=== PATIENT | male | born 1955 | race African-American/Black ===

== ENCOUNTER 2022-05-22 08:16 | Inpatient (IN) | payer MEDICARE, MEDICAID, SELFPAY ==
[2022-05-22] VITALS (30 sets, daily range): BP systolic 110–164; BP diastolic 62–95; PULSE 59–94; RESP 14–33; TEMP 36.5–38.9; O2SAT 90–100; BMI 26.0
--- NOTE | ~2022-05-22 | XR_ITS ---
EXAMINATION: XR chest 1V portable INDICATION: Cough, sepsis TECHNIQUE: Portable AP chest at 0845 hours COMPARISON: None available FINDINGS: There are minimal airspace opacities of the left lung base. No pleural effusion or pneumoth orax. The cardiomediastinal silhouette is normal. 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 IMPRESSION: 1. Minimal left basilar airspace opacity, consistent with atelectasis versus pneumonia. Reviewed, dictated and finalized at location A. IMPRESSION: 1. Minimal left basilar airspace opacity, consistent with atelectasis versus pn eumonia.
--- NOTE | ~2022-05-22 | XR_ITS ---
EXAMINATION: XR chest 2V DATE: 05/27/2022 09:01 INDICATION: Pneumonia. TECHNIQUE: Frontal and lateral views of the chest were obtained. COMPARISON: Chest CT 05/22/2022 FINDINGS: Calcified pulmonary nodules are consistent with old granulomatous disease. There are airspa ce opacities in left upper lobe. There is mild atelectasis in right midlung zone. There are small ple ural effusions. No pneumothorax. The heart size is normal. IMPRESSION: 1. Stable airspace opacities in left upper lobe, consistent with pneumonia. 2. Small pleural effusions. Reviewed, dictated and finalized at location A.
--- NOTE | ~2022-05-22 | CT_ITS ---
EXAMINATION: CTA chest PE protocol DATE: 05/22/2022 10:37 CDT INDICATION: Increased weakness. Elevated d-dimer. Back pain. TECHNIQUE: Computed tomographic angiography (CTA) of the chest was performed with 100 mL Omnipaque-35 0 intravenous contrast. The dose-length product was 381.82 mGy-cm. Maximum intensity projection 3D-re constructions of the aorta and other arteries were constructed by the technologist on a separate work station. COMPARISON: None. FINDINGS: There is thoracic lymphadenopathy involving the AP window, right paratracheal and right hil ar locations. Small pleural effusions. Cardiomegaly. Study limited for evaluation of peripheral pulmo nary arteries due to motion and contrast bolus timing. No central pulmonary embolism. No evidence for aortic aneurysm or dissection. Patchy airspace disease present in the upper and lower lobes, most co nfluent in the left upper lobe, consistent with pneumonia. Mild thoracic spondylosis. No acute osseou s abnormality. IMPRESSION: 1. No large central pulmonary embolism. Evaluation of peripheral pulmonary arteries limited by motion and contrast bolus timing. 2: Multifocal pneumonia most confluent in the left upper lobe. 3: Small pleural effusions. 4: Mediastinal and right hilar lymphadenopathy, most likely reactive. Reviewed, dictated and finalized at location B. IMPRESSION: 1. No large central pulmonary embolism. Evaluation of peripheral pulmonary betina antonio limited by motion and contrast bolus timing. 2: Multifocal pneumonia most confluent in the left upper lobe. 3: Small pleural effusions. 4: Mediastinal and right hilar lymphadenopathy, most likely reactive.
--- NOTE | ~2022-05-22 | CT_ITS ---
EXAMINATION: CT thoracic lumbar wo con DATE: 05/22/2022 10:33 INDICATION: Increased weakness. Back pain. Elevated d-dimer. TECHNIQUE: Computed tomography (CT) of the thoracic and lumbar spine was performed without intravenou s contrast. The dose-length product was 1309.68 mGy-cm. Automated exposure control and iterative cindy nstruction technique were employed. COMPARISON: None FINDINGS: There is mild superior endplate compression fracture of L1, likely chronic. There is a bone island an d T8. There is dextrocurvature of the lower thoracic spine. No significant paraspinal soft tissue abn ormality. Small pleural effusions. Patchy bilateral airspace disease, consistent with pneumonia. Ther e are degenerative changes of the sacroiliac joints bilaterally. There is degenerative retrolisthesis at L1-2. There is disc narrowing at L3-4, L4-5 and L5-S1. There is mild multilevel facet hypertrophy. There is bilateral neural foraminal narrowing at L1-2. IMPRESSION: 1. Mild superior endplate compression deformity of L1, likely chronic. Consider correlation with MRI to assess for bone marrow edema. 2: Moderate degenerative spondylosis at L1-2 with retrolisthesis causing bilateral neural foraminal n arrowing. 3: Moderate lumbar spondylosis. Reviewed, dictated and finalized at location B. IMPRESSION: 1. Mild superior endplate compression deformity of L1, likely chronic. Consider correlation with MRI to assess for bone marrow edema. 2: Moderate degenerative spondylosis at L1-2 with retrolisthesis causing bilate ral neural foraminal narrowing. 3: Moderate lumbar spondylosis.
--- NOTE | 2022-05-22 08:17 | ED.WEAKNESS ---
HPI - Weakness General Chief complaint: Dizziness Stated complaint: dizzy History of Present Illness HPI Narrative: Patient is a 67-year-old male with a history of hypertension, gout, hypothyroidism presenting to the emergency department for evaluation of weakness, intermittent dizziness and difficulty with ambulation. Per EMS report, the patient reportedly tested positive for COVID on May 13. Patient was initially evaluated at [facility] where he was admitted and then ultimately discharged home too quickly per family. The patient has a family member who is a caregiver that checked on the patient today and found him to be weak and then called EMS. At the time of arrival, patient is alert and oriented to person, place, time but does struggle with identifying the year. He is reporting upper and lower back pain and generalized weakness. He reports decreased appetite, productive cough and shortness of breath. He denies any frontal chest pain. Per EMS, he required significant assist with ascending staircase since his room is in the basement and is likely not safe at home due to significant amount of steps. When questioned, patient denies any close family members that he would want contacted and denies any children. Related Data Home Medications Medication Instructions Recorded Confirmed allopurinol 100 mg tablet 100 mg PO DAILY 05/22/22 calcium carbonate 500 mg-vitamin 1 tablet PO BID 05/22/22 D3 5 mcg (200 unit) tablet (Oysco 500/D) hydrocortisone 5 mg tablet 5 mg PO BID 05/22/22 levothyroxine 75 mcg tablet 75 mcg PO DAILY 05/22/22 losartan 50 mg tablet 50 mg PO DAILY 05/22/22 metoprolol succinate 50 mg 50 mg PO DAILY 05/22/22 tablet,extended release 24 hr Allergies Allergy/AdvReac Type Severity Reaction Status Date / Time No Known Allergies Allergy Verified 05/22/22 08:22 Review of Systems Review of Systems: CONSTITUTIONAL: Denies fever, reports chills EYES: Denies visual changes, redness, or discharge. ENT: Denies rhinorrhea, reports congestion CARDIOVASCULAR: Denies chest pain, palpitations, or edema. RESPIRATORY: Reports cough and shortness of breath GASTROINTESTINAL: Denies abdominal pain, nausea, vomiting, or diarrhea. GENITOURINARY: Denies dysuria or hematuria. SKIN: Denies rash or itching. MUSCULOSKELETAL: Reports upper and lower back pain as well as diffuse joint pain and myalgias. NEUROLOGIC: Denies headache, numbness, reports weakness. Reports intermittent dizziness, denies currently. Denies room spinning sensation. [facility] Social History Social History Alcohol intake: never Substance use: never Living arrangements: alone Gender identity (if verbalized by the patient): Male Exam Narrative: GENERAL: Awake, alert, conversant, fatigued appearing HEAD: Normocephalic, atraumatic. EYES: PERRLA and EOMI. ENT: Nares clear, no rhinorrhea or epistaxis. Mucous membranes dry. NECK: Supple. CHEST: No respiratory distress, coarse breath sounds bilaterally, greater on the right than on the left, no significant crackles HEART: Tachycardic rate, sinus rhythm ABDOMEN:Non distended, non tender EXTREMITIES: Normal range of motion. No edema. No calf edema, erythema, induration or pain bilaterally. SKIN: Warm, dry, no rash. NEURO:No focal deficits. Alert and oriented x 2-3 Course Vital Signs Vital signs: Vital Signs Temperature 38.9 C H 05/22/22 08:14 Pulse Rate 94 05/22/22 08:14 Respiratory Rate 20 05/22/22 08:14 Blood Pressure 164/82 H 05/22/22 08:14 Pulse Oximetry 99 05/22/22 08:14 Oxygen Delivery Room Air 05/22/22 08:14 Temperature 37.2 C 05/22/22 11:35 Pulse Rate 65 05/22/22 11:48 Respiratory Rate 25 H 05/22/22 11:48 Blood Pressure 110/67 05/22/22 11:48 Pulse Oximetry 97 05/22/22 11:48 Oxygen Delivery Room Air 05/22/22 08:14 MDM - Weakness MDM Narrative Medical decision fallon
--- NOTE | 2022-05-22 08:18 | ECG_ITS ---
Measurements Intervals [place] Rate: 91 P: 54 IA: 143 QRS: -20 QRSD: 101 T: 64 QT: 350 QTc: 432 Interpretive Statements SINUS RHYTHM Cannot rule out inferior infarction, AGE INDETERMINATE NONSPECIFIC ST AND T-WAVE ABNORMALITY ABNORMAL ECG NO PREVIOUS ECG AVAILABLE FOR COMPARISON Electronically Signed On 05-22-2022 12:05:28 CDT by Trey Vergara M.D.
[2022-05-22] MEDS: ACETAMINOPHEN 500 MG TABLET 1000 MG PO (08:33)
[2022-05-22] MEDS: DEXTROSE 5%/0.45% SOD CHL 500 ML 100 ML IV CONT (08:35)
[2022-05-22 08:37] LABS: Glucose Point of Care 69 mg/dl (65-105)
[2022-05-22 08:42] LABS: Basophils Percent Auto 0.2 % (0.2-1.2); Eosinophils Absolute Auto 0.2 K/mm3 (0-0.3); Eosinophils Percent Auto 1.2 % (0-4.4); Hematocrit 38.9 % (42.0-52.0); Hemoglobin 12.5 g/dL (14.0-18.0); Immature Granulocyte Absolute 0.78 K/mm3 (0.00-0.031); Immature Granulocyte Percent A 4.4 % (0-0.5); Lymphocytes Absolute Auto 3.31 K/mm3 (0.9-3.2); Lymphocytes Percent Auto 18.7 % (18.3-44.2); Mean Corpuscular HGB Conc 32.1 g/dl (32-36); Mean Corpuscular Hemoglobin 26.2 pg (26-34); Mean Corpuscular Volume 81.4 fl (80-100); Mean Platelet Volume 9.3 fl (7.4-10.4); Monocytes Absolute Auto 1.2 K/mm3 (0.1-0.6); Monocytes Percent Auto 6.7 % (2.6-8.5); Neutrophils Absolute Auto 12.2 K/mm3 (1.3-6.7); Neutrophils Percent Auto 68.8 % (45.5-73.1); Platelet Count Result 445 k/mm3 (150-375); Red Blood Count 4.78 M/mm3 (4.6-6.20); Red Cell Distribution Width 14.1 % (11.5-14.5); White Blood Count 17.7 K/mm3 (4.5-10.0)
[2022-05-22 08:53] LABS: Lactic Acid Reflex 2.2 mmol/L (0.7-2.0)
[2022-05-22 09:16] LABS: Appearance Urine Cloudy (Clear); Bilirubin Urine Negative (Negative); Blood Urine 1+ (Negative); Color Urine Yellow (Yellow); Glucose Urine UA Negative (Negative); Ketones Urine Negative (Negative); Leukocyte Esterase Ur 1+ LEU/UL (Negative); Nitrate Urine Negative (Negative); Protein Urine Trace mg/dL (Negative); pH Urine 6.5 (5.0-9.0)
[2022-05-22 09:22] LABS: Glucose Point of Care 50 mg/dl (65-105)
[2022-05-22 09:24] LABS: INR 1.1; Prothrombin Time 14.2 Seconds (11.1-14.7)
[2022-05-22 09:25] LABS: Partial Thromboplastin Time 40.8 SECONDS (22.3-36.8)
[2022-05-22 09:26] LABS: D Dimer 3.39 ug/mL (<0.48)
--- NOTE | 2022-05-22 09:26 | PC.NURSE ---
Addendum entered by Brian Bellamy RN 05/22/22 09:29: Rate changed to 500mL/hr. Original Note: Patient's blood glucose rechecked, currently 50. EDP Grzegorz notified. Patient given juice and per EDP Grzegorz verbal order read-back increase D5 to 999ml/hr.
[2022-05-22 09:33] LABS: NT Pro B Type Natriuretic Pept 431 pg/mL (5-100)
[2022-05-22 09:41] LABS: Glucose Point of Care 86 mg/dl (65-105)
[2022-05-22 09:41] LABS: Alanine Aminotransferase 38 U/L (6-50); Albumin Level 3.6 g/dL (3.5-5.1); Alkaline Phosphatase 109 U/L (38-126); Anion Gap 8 mmol/L (8-16); Aspartate Amino Transferase 47 U/L (17-59); Bilirubin,Total 1.3 mg/dL (0.2-1.3); Blood Urea Nitrogen 13 mg/dL (9-20); Calcium 8.8 mg/dL (8.4-10.2); Carbon Dioxide 25 mmol/L (22-30); Chloride 99 mmol/L (98-107); Estimated CRCL calculation 43 ml/min; Estimated Glomerular Filt Rate 52; Glucose 91 mg/dL (65-110); Potassium 3.5 mmol/L (3.4-5.0); Sodium 132 mmol/L (137-145)
[2022-05-22 09:43] LABS: Bacteria Urine Trace /hpf; Mucus Urine Rare /lpf; RBC Urine 0-2 /hpf (0-2); Squamous Epithelial Cell Urine Rare /hpf (Few); WBC Urine 21-30 /hpf
[2022-05-22 09:44] LABS: Add Urine Microscopic? YES
[2022-05-22 09:52] LABS: CRP 19.1 mg/dL (<1.0); Troponin I 0.036 ng/mL (0.000-0.034)
[2022-05-22] MEDS: SODIUM CHLORIDE 0.9% IV 500 ML 999 ML IV CONT (09:58)
[2022-05-22 10:23] LABS: Glucose Point of Care 103 mg/dl (65-105)
[2022-05-22 10:35] LABS: Thyroid Stimulating Hormone Reflex 0.099 uIU/mL (0.465-4.68)
[2022-05-22] MEDS: SODIUM CHLORIDE 0.9% IV 1,000 ML 999 ML IV CONT (10:49)
[2022-05-22 11:06] LABS: Free T4 Free Thyroxine Reflex 0.98 ng/dL (0.78-2.19)
--- NOTE | 2022-05-22 11:10 | PM.IMHP ---
H&P: HPI History of Present Illness Date/Time: 05/22/22 11:10 Chief Complaint: Patient is a 67-year-old male with a history of hypertension, gout, hypothyroidism presenting to the emergency department for evaluation of weakness, intermittent dizziness and difficulty with ambulation.? Per EMS report, the patient reportedly tested positive for COVID on May 13.? Patient was initially evaluated at [facility] where he was admitted and then ultimately discharged home too quickly per family.? The patient has a family member who is a caregiver that checked on the patient today and found him to be weak and then called EMS.? This is why EMS was called and the patient was brought into the ER. At the time of arrival, patient is alert and oriented to person, place, time but does struggle with identifying the year.? He is reporting upper and lower back pain and generalized weakness.? He reports decreased appetite, productive cough and shortness of breath.? He denies any frontal chest pain.? Per EMS, he required significant assist with ascending staircase since his room is in the basement and is likely not safe at home due to significant amount of steps.? When I evaluated the patient he was doing a little bit better. Feeling like his breathing was improved. He did receive vanc and cefepime in the ER. CT scan revealed pneumonia but no PE. Denies any other chest pain complaints. Review of Systems Review of Systems: 10 point ROS negative except as stated in HPI / Subjective PMFSH Social History Social History Alcohol intake: never Substance use: never Living arrangements: alone Gender identity (if verbalized by the patient): Male Meds Home Medications and Allergies Home Medications Medication Instructions Recorded Confirmed Type allopurinol 100 mg tablet 100 mg PO DAILY 05/22/22 History calcium carbonate 500 mg-vitamin 1 tablet PO BID 05/22/22 History D3 5 mcg (200 unit) tablet (Oysco 500/D) hydrocortisone 5 mg tablet 5 mg PO BID 05/22/22 History levothyroxine 75 mcg tablet 75 mcg PO DAILY 05/22/22 History losartan 50 mg tablet 50 mg PO DAILY 05/22/22 History metoprolol succinate 50 mg 50 mg PO DAILY 05/22/22 History tablet,extended release 24 hr Allergies Allergy/AdvReac Type Severity Reaction Status Date / Time No Known Allergies Allergy Verified 05/22/22 08:22 Vital Signs Vital Signs - 24 hr 05/22/22 08:14 05/22/22 08:22 05/22/22 08:30 Temperature 102.1 F H Pulse Rate 94 91 87 Respiratory Rate 20 28 H 30 H Blood Pressure 164/82 H Pulse Oximetry 99 100 Oxygen Delivery Room Air 05/22/22 08:45 05/22/22 09:00 05/22/22 09:16 Temperature Pulse Rate 84 81 83 Respiratory Rate 27 H 33 H 23 H Blood Pressure Pulse Oximetry 99 100 100 Oxygen Delivery 05/22/22 09:19 05/22/22 09:33 05/22/22 10:49 Temperature 98.9 F Pulse Rate 80 78 Respiratory Rate 30 H 32 H Blood Pressure 155/81 H 120/76 Pulse Oximetry 98 98 Oxygen Delivery 05/22/22 09:34 05/22/22 09:45 05/22/22 10:00 Temperature Pulse Rate 78 78 79 Respiratory Rate 33 H 32 H 32 H Blood Pressure Pulse Oximetry 98 98 99 Oxygen Delivery 05/22/22 10:01 05/22/22 10:15 05/22/22 10:35 Temperature Pulse Rate 79 92 Respiratory Rate 33 H 23 H Blood Pressure 116/66 Pulse Oximetry 98 98 97 Oxygen Delivery 05/22/22 10:44 05/22/22 10:45 Temperature Pulse Rate 77 76 Respiratory Rate 31 H 27 H Blood Pressure 121/66 Pulse Oximetry 96 97 Oxygen Delivery H&P: Results Labs Labs: Short CBC 05/22/22 Range/Units 08:33 WBC 17.7 H (4.5-10.0) K/mm3 Hgb 12.5 L (14.0-18.0) g/dL Hct 38.9 L (42.0-52.0) % Plt Count 445 H (150-375) k/mm3 BMP 05/22/22 09:06 Sodium 132 L Potassium 3.5 Chloride 99 Carbon Dioxide 25 BUN 13 Creatinine 1.60 H Glucose 91 Calcium 8.8 Cardiac Enzym
[2022-05-22 11:23] LABS: Glucose Point of Care 75 mg/dl (65-105)
[2022-05-22 11:38] LABS: Reflex Lactic Acid Yes or No Add Lactic
[2022-05-22 11:46] LABS: Total Triiodothyronine (T3) 0.76 NG/ML (0.97-1.69)
--- NOTE | 2022-05-22 12:00 | ADMGEN ---
This patient, Alex Saldana, was admitted to IMU Room 209-. Patient/family oriented to hospital policies and general routines including ID bracelet, bed and alarms, visiting hours, pain management, procedures, bathroom and other care routines, personal items, smoking policy, room service/diet, and visiting hours. Information on how to activate the Rapid Response Team has been discussed. Patient/Family are encouraged to report perceived risks to care and to ask questions if they do not understand what they are told or what they should do.
[2022-05-22 12:10] LABS: Lactic Acid 0.9 mmol/L (0.7-2.0)
[2022-05-22 12:23] LABS: Troponin I 0.034 ng/mL (0.000-0.034)
[2022-05-22 12:45] LABS: Glucose Point of Care 57 mg/dl (65-105)
[2022-05-22 13:25] LABS: Glucose Point of Care 75 mg/dl (65-105)
[2022-05-22] MEDS: DEXTROSE 5%/0.45% SOD CHL 1,000 ML 100 ML IV CONT (13:29)
[2022-05-22 14:37] LABS: Glucose Point of Care 80 mg/dl (65-105)
[2022-05-22 15:16] LABS: Glucose Point of Care 76 mg/dl (65-105)
[2022-05-22 16:29] LABS: Troponin I 0.019 ng/mL (0.000-0.034)
[2022-05-22 16:50] LABS: Glucose Point of Care 59 mg/dl (65-105)
[2022-05-22 18:23] LABS: Glucose Point of Care 61 mg/dl (65-105)
[2022-05-22] MEDS: DEXTROSE 50% 25 GM/50 ML SYRINGE IV PUSH ×3 (18:40→21:29)
[2022-05-22 19:24] LABS: Glucose Point of Care 60 mg/dl (65-105)
[2022-05-22] MEDS: DEXTROSE 10% 1,000 ML 125 ML IV CONT (20:29)
[2022-05-22 20:31] LABS: Glucose Point of Care 80 mg/dl (65-105)
[2022-05-22 21:16] LABS: Glucose Point of Care 71 mg/dl (65-105)
[2022-05-22 21:33] LABS: Glucose Point of Care 69 mg/dl (65-105)
[2022-05-22 22:11] LABS: Glucose Point of Care 100 mg/dl (65-105)
[2022-05-22 23:12] LABS: Glucose Point of Care 79 mg/dl (65-105)
[2022-05-23] VITALS (14 sets, daily range): BP systolic 132–169; BP diastolic 58–84; PULSE 73–89; RESP 16–24; TEMP 36.6–37.6; O2SAT 96–100
[2022-05-23 00:36] LABS: Glucose Point of Care 82 mg/dl (65-105)
[2022-05-23] MEDS: GLUCAGON FOR INJ 1 MG VIAL IM (00:36)
[2022-05-23 02:05] LABS: Glucose Point of Care 112 mg/dl (65-105)
[2022-05-23 03:17] LABS: Glucose Point of Care 112 mg/dl (65-105)
[2022-05-23 05:01] LABS: Glucose Point of Care 99 mg/dl (65-105)
[2022-05-23] MEDS: DEXTROSE 10% 1,000 ML 125 ML IV CONT ×3 (05:13→22:56)
[2022-05-23 05:16] LABS: Glucose Point of Care 102 mg/dl (65-105)
[2022-05-23 05:27] LABS: Basophils Absolute Auto 0.1 K/mm3 (0.0-0.1); Basophils Percent Auto 0.3 % (0.2-1.2); Eosinophils Absolute Auto 0.3 K/mm3 (0-0.3); Eosinophils Percent Auto 1.5 % (0-4.4); Hematocrit 38.9 % (42.0-52.0); Hemoglobin 12.8 g/dL (14.0-18.0); Immature Granulocyte Absolute 0.65 K/mm3 (0.00-0.031); Immature Granulocyte Percent A 3.5 % (0-0.5); Lymphocytes Absolute Auto 3.04 K/mm3 (0.9-3.2); Lymphocytes Percent Auto 16.5 % (18.3-44.2); Mean Corpuscular HGB Conc 32.9 g/dl (32-36); Mean Corpuscular Hemoglobin 26.3 pg (26-34); Mean Platelet Volume 8.9 fl (7.4-10.4); Monocytes Absolute Auto 1.1 K/mm3 (0.1-0.6); Monocytes Percent Auto 6.2 % (2.6-8.5); Neutrophils Absolute Auto 13.3 K/mm3 (1.3-6.7); Platelet Count Result 440 k/mm3 (150-375); Red Blood Count 4.86 M/mm3 (4.6-6.20); Red Cell Distribution Width 13.8 % (11.5-14.5); White Blood Count 18.5 K/mm3 (4.5-10.0)
[2022-05-23 05:42] LABS: Anion Gap 7 mmol/L (8-16); Blood Urea Nitrogen 8 mg/dL (9-20); Calcium 7.8 mg/dL (8.4-10.2); Carbon Dioxide 25 mmol/L (22-30); Chloride 98 mmol/L (98-107); Estimated CRCL calculation 52 ml/min; Estimated Glomerular Filt Rate > 60; Glucose 104 mg/dL (65-110); Potassium 3.5 mmol/L (3.4-5.0); Sodium 130 mmol/L (137-145)
[2022-05-23 06:30] LABS: Glucose Point of Care 114 mg/dl (65-105)
[2022-05-23 08:26] LABS: Glucose Point of Care 101 mg/dl (65-105)
[2022-05-23 09:09] LABS: Glucose Point of Care 139 mg/dl (65-105)
--- NOTE | 2022-05-23 11:36 | PCNSR ---
On 05/23/22, the student, Teresa Moreno, provided care and completed [facility] documentation on this patient. I have reviewed the student's documentation and agree with the findings.
[2022-05-23 12:22] LABS: Glucose Point of Care 109 mg/dl (65-105)
[2022-05-23 16:44] LABS: Glucose Point of Care 103 mg/dl (65-105)
--- NOTE | 2022-05-23 17:10 | PM.IMPN ---
Progress Note: A&P Assessment and Plan (1) Hypothyroidism: Code(s): E03.9 - Hypothyroidism, unspecified Status: Acute Assessment and Plan: Will continue home medications once reconciled. (2) Gout: Code(s): M10.9 - Gout, unspecified Status: Acute Assessment and Plan: Will continue home medications once reconciled. (3) Hypertension: Code(s): I10 - Essential (primary) hypertension Status: Acute Assessment and Plan: Monitor blood pressure, continue home medications. (4) Pneumonia: Code(s): J18.9 - Pneumonia, unspecified organism Status: Acute Assessment and Plan: CT scan showed no PE but she does have areas of consolidation consistent with pneumonia. Recent just discharged from the hospital with COVID. IV vanc and cefepime started in the ER will be continued. Respiratory support as needed (5) COVID: Code(s): U07.1 - COVID-19 Status: Acute Assessment and Plan: Recent infected, just discharged from the hospital recently. Respiratory support as needed (6) Weakness: Code(s): R53.1 - Weakness Status: Acute Assessment and Plan: PT/OT Additional Plan 05/23/2022 interval history: patient with dementia and recently was diagnosed with COVID 19 and hospitalized, presented with weakness and now has pneumonia treated with Cefepime and Vancomycin, will have PT.OT evaluate the patient and will repeat chest x-ray and monitor, Subjective Date/time seen: 05/23/22 17:10 HPI-Patient is a 67-year-old male with a history of hypertension, gout, hypothyroidism presenting to the emergency department for evaluation of weakness, intermittent dizziness and difficulty with ambulation.? Per EMS report, the patient reportedly tested positive for COVID on May 13.? Patient was initially evaluated at [facility] where he was admitted and then ultimately discharged home too quickly per family.? The patient has a family member who is a caregiver that checked on the patient today and found him to be weak and then called EMS.? This is why EMS was called and the patient was brought into the ER. At the time of arrival, patient is alert and oriented to person, place, time but does struggle with identifying the year.? He is reporting upper and lower back pain and generalized weakness.? He reports decreased appetite, productive cough and shortness of breath.? He denies any frontal chest pain.? Per EMS, he required significant assist with ascending staircase since his room is in the basement and is likely not safe at home due to significant amount of steps.? When I evaluated the patient he was doing a little bit better.? Feeling like his breathing was improved.? He did receive vanc and cefepime in the ER.? CT scan revealed pneumonia but no PE.? Denies any other chest pain complaints. 05/23/2022 interval history: patient with dementia and recently was diagnosed with COVID 19 and hospitalized, presented with weakness and now has pneumonia treated with Cefepime and Vancomycin, will have PT.OT evaluate the patient and will repeat chest x-ray and monitor, Review of Systems Review of Systems: 10 point ROS negative except as stated in HPI / Subjective Exam Narrative: Patient is comfortable, NAD HEENT: eyes are clear and none icteric LUNGS: normal respiratory effort ABD: not distended Lower extremities: no edema SKIN: nonjaundiced Neuro: grossly intact. Objective Data Vital Signs Vital Signs: Vital Signs - 24 hr 05/22/22 18:00 05/22/22 20:00 05/22/22 20:00 Temperature 99 F Pulse Rate 60 73 Respiratory Rate 20 Blood Pressure 149/63 H Pulse Oximetry 90 Oxygen Delivery Room Air 05/22/22 20:00 05/22/22 22:00 05/22/22 23:58 Temperature 98.7 F Pulse Rate 79 74 75 Respiratory Rate 16 Blood Pressure 153/95 H Pulse Oximetry 96 Oxygen Delivery 05/23/22 00:00 05/23/22 00:00 05/23/22 04:00 Temperature Pulse
[2022-05-23] MEDS: TAMSULOSIN HCL 0.4 MG CAPSULE PO (20:19)
[2022-05-23 22:01] LABS: Glucose Point of Care 118 mg/dl (65-105)
[2022-05-24] VITALS (14 sets, daily range): BP systolic 98–128; BP diastolic 51–69; PULSE 61–96; RESP 16–22; TEMP 36.9–37.6; O2SAT 95–100
[2022-05-24 00:03] LABS: Glucose Point of Care 125 mg/dl (65-105)
[2022-05-24 04:31] LABS: Glucose Point of Care 172 mg/dl (65-105)
[2022-05-24 05:35] LABS: Estimated CRCL calculation 45 ml/min; Estimated Glomerular Filt Rate 56
[2022-05-24] MEDS: DEXTROSE 10% 1,000 ML 125 ML IV CONT ×2 (07:04→17:26)
[2022-05-24] MEDS: LEVOTHYROXINE SODIUM 75 MCG TABLET PO (07:05)
[2022-05-24 07:51] LABS: Glucose Point of Care 125 mg/dl (65-105)
[2022-05-24] MEDS: LOSARTAN POTASSIUM 50 MG TABLET PO (09:49)
[2022-05-24] MEDS: METOPROLOL SUCCINATE EXT REL 50 MG TABCR PO (09:49)
[2022-05-24] MEDS: HYDROCORTISONE 10 MG TABLET PO (09:49)
[2022-05-24 10:01] LABS: Hematocrit 37.2 % (42.0-52.0); Hemoglobin 12.2 g/dL (14.0-18.0); Mean Corpuscular HGB Conc 32.8 g/dl (32-36); Mean Corpuscular Hemoglobin 26.8 pg (26-34); Mean Corpuscular Volume 81.8 fl (80-100); Mean Platelet Volume 10.7 fl (7.4-10.4); Platelet Count Result 411 k/mm3 (150-375); Red Blood Count 4.55 M/mm3 (4.6-6.20); Red Cell Distribution Width 14.6 % (11.5-14.5); White Blood Count 18.6 K/mm3 (4.5-10.0)
[2022-05-24 10:22] LABS: Alanine Aminotransferase 31 U/L (6-50); Albumin Level 2.8 g/dL (3.5-5.1); Alkaline Phosphatase 102 U/L (38-126); Anion Gap 10 mmol/L (8-16); Aspartate Amino Transferase 60 U/L (17-59); Bilirubin,Total 1.3 mg/dL (0.2-1.3); Blood Urea Nitrogen 7 mg/dL (9-20); Calcium 7.6 mg/dL (8.4-10.2); Carbon Dioxide 20 mmol/L (22-30); Chloride 92 mmol/L (98-107); Estimated CRCL calculation 45 ml/min; Estimated Glomerular Filt Rate 56; Glucose 103 mg/dL (65-110); Potassium 4.6 mmol/L (3.4-5.0); Sodium 122 mmol/L (137-145)
[2022-05-24 10:57] LABS: Magnesium 1.8 mg/dL (1.6-2.3)
[2022-05-24] MEDS: HYDROCORTISONE 5 MG TABLET PO (13:27)
[2022-05-24 13:39] LABS: Glucose Point of Care 126 mg/dl (65-105)
[2022-05-24 13:39] LABS: Glucose Point of Care 123 mg/dl (65-105)
[2022-05-24] MEDS: cefTRIAXone 2 GM in SODIUM CHLORIDE 0.9% IV 100 ML 200 ML IVPB (15:30)
[2022-05-24 17:03] LABS: Glucose Point of Care 159 mg/dl (65-105)
--- NOTE | 2022-05-24 17:52 | PM.IMPN ---
Progress Note: A&P Assessment and Plan (1) Hypothyroidism: Code(s): E03.9 - Hypothyroidism, unspecified Status: Acute Assessment and Plan: Will continue home medications once reconciled. (2) Gout: Code(s): M10.9 - Gout, unspecified Status: Acute Assessment and Plan: Will continue home medications once reconciled. (3) Hypertension: Code(s): I10 - Essential (primary) hypertension Status: Acute Assessment and Plan: Monitor blood pressure, continue home medications. (4) Pneumonia: Code(s): J18.9 - Pneumonia, unspecified organism Status: Acute Assessment and Plan: CT scan showed no PE but she does have areas of consolidation consistent with pneumonia. Recent just discharged from the hospital with COVID. IV vanc and cefepime started in the ER will be continued. Respiratory support as needed (5) COVID: Code(s): U07.1 - COVID-19 Status: Acute Assessment and Plan: Recent infected, just discharged from the hospital recently. Respiratory support as needed (6) Weakness: Code(s): R53.1 - Weakness Status: Acute Assessment and Plan: PT/OT Additional Plan 05/23/2022 interval history: patient with dementia and recently was diagnosed with COVID 19 and hospitalized, presented with weakness and now has pneumonia treated with Cefepime and Vancomycin, will have PT.OT evaluate the patient and will repeat chest x-ray and monitor. 05/24/2022 interval history: patient with dementia and recently was diagnosed with COVID 19 and hospitalized, presented with weakness and now has pneumonia treated with Cefepime and Vancomycin, today discusss with ID pharmacy recommended to deescalate abx to ceftriaxone and doxycycline, patient continue to be on D10 IVF 125cc/hr, and eating full regular meals, and blood sugars remains close 100, most likely syncopal episodes and falling stemming from hypoglycemia, will do further evaluation for hypoglycemia, will continue to monitor, will have PT.OT evaluate the patient and will repeat chest x-ray and monitor, Subjective Date/time seen: 05/24/22 17:52 05/24/2022 interval history: patient with dementia and recently was diagnosed with COVID 19 and hospitalized, presented with weakness and now has pneumonia treated with Cefepime and Vancomycin, today discusss with ID pharmacy recommended to deescalate abx to ceftriaxone and doxycycline, patient continue to be on D10 IVF 125cc/hr, and eating full regular meals, and blood sugars remains close 100, most likely syncopal episodes and falling stemming from hypoglycemia, will do further evaluation for hypoglycemia, will continue to monitor, will have PT.OT evaluate the patient and will repeat chest x-ray and monitor, Exam Narrative: Patient is comfortable, NAD HEENT: eyes are clear and none icteric LUNGS: normal respiratory effort ABD: not distended Lower extremities: no edema SKIN: nonjaundiced Neuro: grossly intact. Objective Data Vital Signs Vital Signs: Vital Signs - 24 hr 05/23/22 19:59 05/23/22 18:00 05/24/22 00:00 Temperature 99.4 F 99.6 F Pulse Rate 89 87 96 Respiratory Rate 24 H 18 Blood Pressure 132/67 125/69 Pulse Oximetry 99 96 Oxygen Delivery 05/23/22 20:00 05/24/22 00:00 05/23/22 20:00 Temperature Pulse Rate 86 Respiratory Rate Blood Pressure Pulse Oximetry Oxygen Delivery Room Air Room Air 05/23/22 22:00 05/24/22 00:00 05/24/22 02:00 Temperature Pulse Rate 86 94 84 Respiratory Rate Blood Pressure Pulse Oximetry Oxygen Delivery 05/24/22 04:00 05/24/22 04:00 05/24/22 04:00 Temperature 98.5 F Pulse Rate 82 83 Respiratory Rate 16 Blood Pressure 115/64 Pulse Oximetry 96 Oxygen Delivery Room Air 05/24/22 08:00 05/24/22 06:00 05/24/22 09:49 Temperature 99 F Pulse Rate 81 71 93 Respiratory Rate 20 Blood Pressure 109/58 L Pulse Oximetry 100 Oxygen Delvinive
[2022-05-24] MEDS: ONDANSETRON INJ 4 MG/2 ML VIAL IV PUSH (19:01)
[2022-05-24] MEDS: TAMSULOSIN HCL 0.4 MG CAPSULE PO (20:18)
[2022-05-24] MEDS: DOXYCYCLINE HYCLATE 100 MG TABLET PO (20:18)
[2022-05-24 20:32] LABS: Glucose Point of Care 143 mg/dl (65-105)
[2022-05-24 23:50] LABS: Glucose Point of Care 158 mg/dl (65-105)
[2022-05-25] VITALS (10 sets, daily range): BP systolic 103–127; BP diastolic 56–69; PULSE 56–79; RESP 18–20; TEMP 36.6–37.2; O2SAT 98–100
[2022-05-25] MEDS: DEXTROSE 10% 1,000 ML 125 ML IV CONT (00:46)
[2022-05-25 04:40] LABS: Glucose Point of Care 118 mg/dl (65-105)
[2022-05-25 05:53] LABS: Alanine Aminotransferase 26 U/L (6-50); Albumin Level 2.9 g/dL (3.5-5.1); Alkaline Phosphatase 105 U/L (38-126); Anion Gap 9 mmol/L (8-16); Aspartate Amino Transferase 40 U/L (17-59); Bilirubin,Total 0.5 mg/dL (0.2-1.3); Blood Urea Nitrogen 9 mg/dL (9-20); Calcium 8.1 mg/dL (8.4-10.2); Carbon Dioxide 24 mmol/L (22-30); Chloride 88 mmol/L (98-107); Estimated CRCL calculation 48 ml/min; Estimated Glomerular Filt Rate > 60; Glucose 105 mg/dL (65-110); Magnesium 1.9 mg/dL (1.6-2.3); Sodium 121 mmol/L (137-145)
[2022-05-25 05:54] LABS: Hemoglobin 10.8 g/dL (14.0-18.0); Mean Corpuscular HGB Conc 32.7 g/dl (32-36); Mean Corpuscular Hemoglobin 26.3 pg (26-34); Mean Corpuscular Volume 80.5 fl (80-100); Mean Platelet Volume 9.2 fl (7.4-10.4); Platelet Count Result 403 k/mm3 (150-375); Red Cell Distribution Width 13.5 % (11.5-14.5)
[2022-05-25] MEDS: LEVOTHYROXINE SODIUM 75 MCG TABLET PO (06:30)
[2022-05-25 09:22] LABS: Glucose Point of Care 114 mg/dl (65-105)
[2022-05-25] MEDS: DEXTROSE 10% 1,000 ML 75 ML IV CONT (10:39)
[2022-05-25] MEDS: HYDROCORTISONE 10 MG TABLET PO (10:42)
[2022-05-25] MEDS: LOSARTAN POTASSIUM 50 MG TABLET PO (10:42)
[2022-05-25] MEDS: DOXYCYCLINE HYCLATE 100 MG TABLET PO ×2 (10:42→20:21)
[2022-05-25] MEDS: METOPROLOL SUCCINATE EXT REL 50 MG TABCR PO (10:42)
[2022-05-25 12:17] LABS: Glucose Point of Care 101 mg/dl (65-105)
[2022-05-25] MEDS: ONDANSETRON INJ 4 MG/2 ML VIAL IV PUSH (12:30)
[2022-05-25] MEDS: HYDROCORTISONE 5 MG TABLET PO (13:22)
--- NOTE | 2022-05-25 13:22 | PCPTNOTE ---
Patient declined PT at this time due to eating lunch. Patient states maybe later.
--- NOTE | 2022-05-25 13:49 | PM.IMPN ---
Progress Note: A&P Assessment and Plan (1) Hypothyroidism: Code(s): E03.9 - Hypothyroidism, unspecified Status: Acute Assessment and Plan: Will continue home medications once reconciled. (2) Gout: Code(s): M10.9 - Gout, unspecified Status: Acute Assessment and Plan: Will continue home medications once reconciled. (3) Hypertension: Code(s): I10 - Essential (primary) hypertension Status: Acute Assessment and Plan: Monitor blood pressure, continue home medications. (4) Pneumonia: Code(s): J18.9 - Pneumonia, unspecified organism Status: Acute Assessment and Plan: CT scan showed no PE but she does have areas of consolidation consistent with pneumonia. Recent just discharged from the hospital with COVID. IV vanc and cefepime started in the ER will be continued. Respiratory support as needed (5) COVID: Code(s): U07.1 - COVID-19 Status: Acute Assessment and Plan: Recent infected, just discharged from the hospital recently. Respiratory support as needed (6) Weakness: Code(s): R53.1 - Weakness Status: Acute Assessment and Plan: PT/OT Additional Plan 05/23/2022 interval history: patient with dementia and recently was diagnosed with COVID 19 and hospitalized, presented with weakness and now has pneumonia treated with Cefepime and Vancomycin, will have PT.OT evaluate the patient and will repeat chest x-ray and monitor. 05/24/2022 interval history: patient with dementia and recently was diagnosed with COVID 19 and hospitalized, presented with weakness and now has pneumonia treated with Cefepime and Vancomycin, today discusss with ID pharmacy recommended to deescalate abx to ceftriaxone and doxycycline, patient continue to be on D10 IVF 125cc/hr, and eating full regular meals, and blood sugars remains close 100, most likely syncopal episodes and falling stemming from hypoglycemia, will do further evaluation for hypoglycemia, will continue to monitor, will have PT.OT evaluate the patient and will repeat chest x-ray and monitor, 05/25/2022 interval history: patient with dementia and recently was diagnosed with COVID 19 and hospitalized, presented with weakness and now has pneumonia treated with Cefepime and Vancomycin, on 05/24 discusssed with ID pharmacy recommended to deescalate abx to ceftriaxone and doxycycline, patient continue to be on D10 IVF 125cc/hr, and eating full regular meals, and blood sugars remains close 100, most likely syncopal episodes and falling stemming from hypoglycemia, today patient blood sugars trending up, will reduce D10 to 75cc/hr, patient TSH is low as well as T3, will start patient on levothyroxine 25mcg daily and monitor, and will continue to monitor, will have PT.OT evaluate the patient and will repeat chest x-ray and monitor. Subjective Date/time seen: 05/25/22 13:49 05/25/2022 interval history: patient with dementia and recently was diagnosed with COVID 19 and hospitalized, presented with weakness and now has pneumonia treated with Cefepime and Vancomycin, on 05/24 discusssed with ID pharmacy recommended to deescalate abx to ceftriaxone and doxycycline, patient continue to be on D10 IVF 125cc/hr, and eating full regular meals, and blood sugars remains close 100, most likely syncopal episodes and falling stemming from hypoglycemia, today patient blood sugars trending up, will reduce D10 to 75cc/hr, patient TSH is low as well as T3, will start patient on levothyroxine 25mcg daily and monitor, and will continue to monitor, will have PT.OT evaluate the patient and will repeat chest x-ray and monitor. Exam Narrative: Patient is comfortable, NAD HEENT: eyes are clear and none icteric LUNGS: normal respiratory effort ABD: not distended Lower extremities: no edema SKIN: nonjaundiced Neuro: grossly intact. Objective Data Vital Signs Vital Signs: Vital Signs - 24 hr 05/24/22 14:00 05/24/22 15:
--- NOTE | 2022-05-25 15:18 | PCOTNOTE ---
Patient attempyted to be seen 2 times this afternoon. Patient was eating and then declined the 2nd time attempted.
[2022-05-25] MEDS: LEVOTHYROXINE SODIUM 25 MCG TABLET PO (15:41)
[2022-05-25] MEDS: cefTRIAXone 2 GM in SODIUM CHLORIDE 0.9% IV 100 ML 200 ML IVPB (15:41)
[2022-05-25 16:56] LABS: Glucose Point of Care 124 mg/dl (65-105)
[2022-05-25 20:21] LABS: Glucose Point of Care 363 mg/dl (65-105)
[2022-05-25] MEDS: TAMSULOSIN HCL 0.4 MG CAPSULE PO (20:21)
[2022-05-25 23:18] LABS: Glucose Point of Care 158 mg/dl (65-105)
[2022-05-26] VITALS (13 sets, daily range): BP systolic 109–122; BP diastolic 63–71; PULSE 53–82; RESP 16–20; TEMP 35.8–37.1; O2SAT 96–100
[2022-05-26 03:27] LABS: Glucose Point of Care 104 mg/dl (65-105)
[2022-05-26] MEDS: DEXTROSE 10% 1,000 ML 75 ML IV CONT ×2 (04:12→15:16)
[2022-05-26 04:49] LABS: Hematocrit 32.1 % (42.0-52.0); Hemoglobin 10.4 g/dL (14.0-18.0); Mean Corpuscular HGB Conc 32.4 g/dl (32-36); Mean Corpuscular Hemoglobin 25.5 pg (26-34); Mean Corpuscular Volume 78.7 fl (80-100); Platelet Count Result 403 k/mm3 (150-375); Red Blood Count 4.08 M/mm3 (4.6-6.20); Red Cell Distribution Width 13.4 % (11.5-14.5)
[2022-05-26 05:03] LABS: Alanine Aminotransferase 25 U/L (6-50); Alkaline Phosphatase 98 U/L (38-126); Anion Gap 6 mmol/L (8-16); Aspartate Amino Transferase 56 U/L (17-59); Bilirubin,Total 0.5 mg/dL (0.2-1.3); Blood Urea Nitrogen 12 mg/dL (9-20); Calcium 8.3 mg/dL (8.4-10.2); Carbon Dioxide 26 mmol/L (22-30); Chloride 95 mmol/L (98-107); Estimated CRCL calculation 48 ml/min; Estimated Glomerular Filt Rate > 60; Glucose 97 mg/dL (65-110); Magnesium 1.9 mg/dL (1.6-2.3); Potassium 3.3 mmol/L (3.4-5.0); Sodium 127 mmol/L (137-145)
[2022-05-26] MEDS: LEVOTHYROXINE SODIUM 100 MCG TABLET PO (06:05)
[2022-05-26 08:29] LABS: Glucose Point of Care 95 mg/dl (65-105)
[2022-05-26] MEDS: DOXYCYCLINE HYCLATE 100 MG TABLET PO ×2 (09:59→20:20)
[2022-05-26] MEDS: HYDROCORTISONE 10 MG TABLET PO ×2 (09:59→18:00)
[2022-05-26] MEDS: METOPROLOL SUCCINATE EXT REL 50 MG TABCR PO (10:01)
[2022-05-26] MEDS: LOSARTAN POTASSIUM 50 MG TABLET PO (10:01)
[2022-05-26 12:29] LABS: Glucose Point of Care 110 mg/dl (65-105)
--- NOTE | 2022-05-26 13:47 | P.PNIM_ITS ---
Progress Note: A&P Assessment and Plan (1) Hypothyroidism: Code(s): E03.9 - Hypothyroidism, unspecified Status: Acute Assessment and Plan: Will continue home medications once reconciled. (2) Gout: Code(s): M10.9 - Gout, unspecified Status: Acute Assessment and Plan: Will continue home medications once reconciled. (3) Hypertension: Code(s): I10 - Essential (primary) hypertension Status: Acute Assessment and Plan: Monitor blood pressure, continue home medications. (4) Pneumonia: Code(s): J18.9 - Pneumonia, unspecified organism Status: Acute Assessment and Plan: CT scan showed no PE but she does have areas of consolidation consistent with pneumonia. Recent just discharged from the hospital with COVID. IV vanc and cefepime started in the ER will be continued. Respiratory support as needed (5) COVID: Code(s): U07.1 - COVID-19 Status: Acute Assessment and Plan: Recent infected, just discharged from the hospital recently. Respiratory support as needed (6) Weakness: Code(s): R53.1 - Weakness Status: Acute Assessment and Plan: PT/OT Additional Plan 05/23/2022 interval history: patient with dementia and recently was diagnosed with COVID 19 and hospitalized, presented with weakness and now has pneumonia treated with Cefepime and Vancomycin, will have PT.OT evaluate the patient and will repeat chest x-ray and monitor. 05/24/2022 interval history: patient with dementia and recently was diagnosed with COVID 19 and hospitalized, presented with weakness and now has pneumonia treated with Cefepime and Vancomycin, today discusss with ID pharmacy recommen ded to deescalate abx to ceftriaxone and doxycycline, patient continue to be on D10 IVF 125cc/hr, and eating full regular meals, and blood sugars remains close 100, most likely syncopal episodes and falling stemming from hypoglycemia, will do further evaluation for hypoglycemia, will continue to monitor, will have PT.OT evaluate the patient and will repeat chest x-ray and monitor, 05/25/2022 interval history: patient with dementia and recently was diagnosed with COVID 19 and hospitalized, presented with weakness and now has pneumonia treated with Cefepime and Vancomycin, on 05/24 discusssed with ID pharmacy recommended to deescalate abx to ceftriaxone and doxycycline, patient continue to be on D10 IVF 125cc/hr, and eating full regular meals, and blood sugars rem ains close 100, most likely syncopal episodes and falling stemming from hypoglycemia, today patient blood sugars trending up, will reduce D10 to 75cc/hr, patient TSH is low as well as T3, will start patient on levothyroxine 25mcg daily and monitor, and will continue to monitor, will have PT.OT evaluate the patient and will repeat chest x-ray and monitor. 05/26/2022 interval history: patient with dementia and recently was diagnosed with COVID 19 and hospitalized, presented with weakness and now has pneumonia was treated with Cefepime and Vancomycin, on 05/24 discussed with ID pharmacy recommended to deescalate abx to ceftriaxone and doxycycline, patient with hypoglycemia patient was on on D10 IVF 125cc/hr, and was eating full regular meals, and blood sugars remains close 100, most likely syncopal episodes and falling stemming from hypoglycemia, on 05/25 patient blood sugars were trending up, reduced D10 to 75cc/hr, patient is on Cortef possibly for hypotension and hypoglycemia, taking 10mg in am and 5mg at noon, will increase to 10mg BID, this will help with hypoglycemia and BP, patient TSH is low as well as T3, patient with hypothyroid taking levothyro
[2022-05-26] MEDS: cefTRIAXone 2 GM in SODIUM CHLORIDE 0.9% IV 100 ML 200 ML IVPB (15:16)
[2022-05-26 17:07] LABS: Glucose Point of Care 95 mg/dl (65-105)
[2022-05-26 19:49] LABS: Glucose Point of Care 120 mg/dl (65-105)
[2022-05-26] MEDS: TAMSULOSIN HCL 0.4 MG CAPSULE PO (20:20)
[2022-05-26 23:47] LABS: Glucose Point of Care 115 mg/dl (65-105)
[2022-05-27] VITALS (9 sets, daily range): BP systolic 111–129; BP diastolic 63–78; PULSE 46–62; RESP 16–24; TEMP 36.4–36.7; O2SAT 99–100
[2022-05-27 04:16] LABS: Glucose Point of Care 115 mg/dl (65-105)
[2022-05-27 04:38] LABS: Hematocrit 32.5 % (42.0-52.0); Hemoglobin 10.6 g/dL (14.0-18.0); Mean Corpuscular HGB Conc 32.6 g/dl (32-36); Mean Corpuscular Hemoglobin 26.2 pg (26-34); Mean Corpuscular Volume 80.4 fl (80-100); Mean Platelet Volume 8.9 fl (7.4-10.4); Platelet Count Result 428 k/mm3 (150-375); Red Blood Count 4.04 M/mm3 (4.6-6.20); Red Cell Distribution Width 13.6 % (11.5-14.5); White Blood Count 10.4 K/mm3 (4.5-10.0)
[2022-05-27 04:58] LABS: Alanine Aminotransferase 24 U/L (6-50); Albumin Level 3.1 g/dL (3.5-5.1); Alkaline Phosphatase 100 U/L (38-126); Anion Gap 6 mmol/L (8-16); Aspartate Amino Transferase 44 U/L (17-59); Bilirubin,Total 0.4 mg/dL (0.2-1.3); Blood Urea Nitrogen 13 mg/dL (9-20); Calcium 8.3 mg/dL (8.4-10.2); Carbon Dioxide 29 mmol/L (22-30); Chloride 96 mmol/L (98-107); Estimated CRCL calculation 52 ml/min; Estimated Glomerular Filt Rate > 60; Glucose 103 mg/dL (65-110); Magnesium 2.2 mg/dL (1.6-2.3); Potassium 3.8 mmol/L (3.4-5.0); Sodium 131 mmol/L (137-145)
[2022-05-27] MEDS: DEXTROSE 10% 1,000 ML 75 ML IV CONT (05:54)
[2022-05-27] MEDS: LEVOTHYROXINE SODIUM 100 MCG TABLET PO (05:55)
[2022-05-27 08:00] LABS: Glucose Point of Care 104 mg/dl (65-105)
[2022-05-27] MEDS: DOXYCYCLINE HYCLATE 100 MG TABLET PO ×2 (09:39→21:56)
[2022-05-27] MEDS: LOSARTAN POTASSIUM 50 MG TABLET PO (09:39)
[2022-05-27] MEDS: HYDROCORTISONE 10 MG TABLET PO ×2 (09:39→17:24)
[2022-05-27 12:03] LABS: Glucose Point of Care 98 mg/dl (65-105)
--- NOTE | 2022-05-27 13:48 | PM.IMPN ---
Progress Note: A&P Assessment and Plan (1) Hypothyroidism: Code(s): E03.9 - Hypothyroidism, unspecified Status: Acute Assessment and Plan: Will continue home medications once reconciled. (2) Gout: Code(s): M10.9 - Gout, unspecified Status: Acute Assessment and Plan: Will continue home medications once reconciled. (3) Hypertension: Code(s): I10 - Essential (primary) hypertension Status: Acute Assessment and Plan: Monitor blood pressure, continue home medications. (4) Pneumonia: Code(s): J18.9 - Pneumonia, unspecified organism Status: Acute Assessment and Plan: CT scan showed no PE but she does have areas of consolidation consistent with pneumonia. Recent just discharged from the hospital with COVID. IV vanc and cefepime started in the ER will be continued. Respiratory support as needed (5) COVID: Code(s): U07.1 - COVID-19 Status: Acute Assessment and Plan: Recent infected, just discharged from the hospital recently. Respiratory support as needed (6) Weakness: Code(s): R53.1 - Weakness Status: Acute Assessment and Plan: PT/OT Additional Plan 05/23/2022 interval history: patient with dementia and recently was diagnosed with COVID 19 and hospitalized, presented with weakness and now has pneumonia treated with Cefepime and Vancomycin, will have PT.OT evaluate the patient and will repeat chest x-ray and monitor. 05/24/2022 interval history: patient with dementia and recently was diagnosed with COVID 19 and hospitalized, presented with weakness and now has pneumonia treated with Cefepime and Vancomycin, today discusss with ID pharmacy recommended to deescalate abx to ceftriaxone and doxycycline, patient continue to be on D10 IVF 125cc/hr, and eating full regular meals, and blood sugars remains close 100, most likely syncopal episodes and falling stemming from hypoglycemia, will do further evaluation for hypoglycemia, will continue to monitor, will have PT.OT evaluate the patient and will repeat chest x-ray and monitor, 05/25/2022 interval history: patient with dementia and recently was diagnosed with COVID 19 and hospitalized, presented with weakness and now has pneumonia treated with Cefepime and Vancomycin, on 05/24 discusssed with ID pharmacy recommended to deescalate abx to ceftriaxone and doxycycline, patient continue to be on D10 IVF 125cc/hr, and eating full regular meals, and blood sugars remains close 100, most likely syncopal episodes and falling stemming from hypoglycemia, today patient blood sugars trending up, will reduce D10 to 75cc/hr, patient TSH is low as well as T3, will start patient on levothyroxine 25mcg daily and monitor, and will continue to monitor, will have PT.OT evaluate the patient and will repeat chest x-ray and monitor. 05/26/2022 interval history: patient with dementia and recently was diagnosed with COVID 19 and hospitalized, presented with weakness and now has pneumonia was treated with Cefepime and Vancomycin, on 05/24 discussed with ID pharmacy recommended to deescalate abx to ceftriaxone and doxycycline, patient with hypoglycemia patient was on on D10 IVF 125cc/hr, and was eating full regular meals, and blood sugars remains close 100, most likely syncopal episodes and falling stemming from hypoglycemia, on 05/25 patient blood sugars were trending up, reduced D10 to 75cc/hr, patient is on Cortef possibly for hypotension and hypoglycemia, taking 10mg in am and 5mg at noon, will increase to 10mg BID, this will help with hypoglycemia and BP, patient TSH is low as well as T3, patient with hypothyroid taking levothyroxine 75mcg qd, will increase to 100mcg qd, and will continue to monitor, will have PT.OT evaluate the patient and will repeat chest x-ray and monitor. 05/27/2022 interval history: patient with dementia and recently was diagnosed with COVID 19 and hospitalized, presented with weakness and now
--- NOTE | 2022-05-27 13:53 | PM.CNCAR ---
Assessment and Plan Assessment and plan (1) Bradycardia: Code(s): R00.1 - Bradycardia, unspecified Status: Acute Assessment and Plan: Patient noted to be bradycardic recently while taking the same metoprolol succinate dose, 50 mg daily, since admission. Perhaps his ?normal heart rate? on admission was actually tachycardic for him, since he was stressed with pneumonia etc. and now we are seeing his true heart rate response. I think we can just discontinue the metoprolol since he has no history of coronary disease or arrhythmias Can follow-up with his primary care doctor, Dr. Nam, on discharge to see if he needs another agent for his blood pressure. His blood pressure is well controlled here. (2) Hypertension: Code(s): I10 - Essential (primary) hypertension Status: Acute Assessment and Plan: History of hypertension. Blood pressure is well controlled, somewhat on the low side. (3) Weakness: Code(s): R53.1 - Weakness Status: Acute Assessment and Plan: Generalize weakness, improved, likely due to recent COVID infection and pneumonia. (4) Pneumonia: Code(s): J18.9 - Pneumonia, unspecified organism Status: Acute Assessment and Plan: Chest x-ray consistent with pneumonia. Improving. Not requiring oxygen. History of Present Illness History of Present Illness Consult date/time: 05/27/22 13:53 Reason For Visit: severe sepsis,hypoglycemia,multifocal pneumonia Narrative: Alex Saldana is 67-year-old male whom I was asked to see at the request of Dr. Jones for my advice and opinion regarding his bradycardia, in consultation. History of hypertension and some dementia. The patient tested positive for COVID on May 13, was admitted to [facility] for a few days, and discharged. He then returned to [facility] because he was very weak and admitted with pneumonia and weakness. There is a question of syncopal episodes, perhaps related to low blood sugar. He has been on room air oxygen. He takes metoprolol succinate 50 mg daily for hypertension. His heart rate initially was in the 70s to 80s, but over the last 24-48 hours has been running in the 40s to 50s. Metoprolol was held this morning. Systolic Blood pressure runs 100-115 mmHg. Interestingly he takes hydrocortisone at home for unknown reasons. Also here he has been found to have hypoglycemia earlier during the admission, requiring D10. The patient has some dementia but denies any history of heart disease, chest pain, or syncope. He does not know his medications or what they are for. He states that he lives alone, is single, no children, but does have a brother and sister in [place]. Review of Systems Constitutional: Constitutional: Reports fatigue, Denies fever(s), Reports lethargy and Reports weakness Comments: Had weakness fatigue and falling on admission improved. Eyes: Eyes: Reports blurry vision (Wears glasses) ENT: Denies epistaxis and Denies nasal congestion Cardiovascular: Cardiovascular: Denies chest pain, Denies pedal edema, Denies lightheadedness and Denies dyspnea Respiratory: Respiratory: Denies chest congestion and Denies dyspnea Gastrointestinal: Gastrointestinal: Denies abdominal pain and Denies hematochezia Genitourinary: Genitourinary: Denies hematuria Musculoskeletal: Musculoskeletal: Reports no additional musculoskeletal complaints and Denies back pain Integumentary/Breasts: Skin/Breast: Reports system reviewed and no additional complaints, except as docu Neurologic: Reports system reviewed and no additional complaints, except as documented, Denies behavioral changes and Denies confusion Psychiatric: Psychiatric: Denies behavioral changes and Denies confusion [facility] Past Medical History Medical History (Updated 05/27/22 @ 14:41 by Nadia Allen MD) History of stroke Memory loss Surgical History Surgical History (Reviewed
[2022-05-27] MEDS: cefTRIAXone 2 GM in SODIUM CHLORIDE 0.9% IV 100 ML 200 ML IVPB (16:04)
[2022-05-27 17:08] LABS: Glucose Point of Care 95 mg/dl (65-105)
[2022-05-27 20:27] LABS: Glucose Point of Care 112 mg/dl (65-105)
[2022-05-27] MEDS: DOCUSATE SODIUM 100 MG CAPSULE PO (21:56)
[2022-05-27] MEDS: TAMSULOSIN HCL 0.4 MG CAPSULE PO (21:56)
[2022-05-28] VITALS (8 sets, daily range): BP systolic 127–135; BP diastolic 72–78; PULSE 50–61; RESP 18–20; TEMP 36.1–37.2; O2SAT 96–100
[2022-05-28 02:58] LABS: Glucose Point of Care 104 mg/dl (65-105)
[2022-05-28 03:58] LABS: Glucose Point of Care 75 mg/dl (65-105)
[2022-05-28] MEDS: LEVOTHYROXINE SODIUM 100 MCG TABLET PO (05:45)
[2022-05-28 06:45] LABS: Hematocrit 32.6 % (42.0-52.0); Hemoglobin 10.6 g/dL (14.0-18.0); Mean Corpuscular HGB Conc 32.5 g/dl (32-36); Mean Corpuscular Volume 80.1 fl (80-100); Mean Platelet Volume 9.1 fl (7.4-10.4); Platelet Count Result 471 k/mm3 (150-375); Red Blood Count 4.07 M/mm3 (4.6-6.20); Red Cell Distribution Width 13.7 % (11.5-14.5)
[2022-05-28 07:07] LABS: Alanine Aminotransferase 23 U/L (6-50); Albumin Level 3.1 g/dL (3.5-5.1); Alkaline Phosphatase 92 U/L (38-126); Anion Gap 7 mmol/L (8-16); Aspartate Amino Transferase 37 U/L (17-59); Bilirubin,Total 0.4 mg/dL (0.2-1.3); Blood Urea Nitrogen 15 mg/dL (9-20); Calcium 8.4 mg/dL (8.4-10.2); Carbon Dioxide 28 mmol/L (22-30); Chloride 99 mmol/L (98-107); Estimated CRCL calculation 56 ml/min; Estimated Glomerular Filt Rate > 60; Glucose 99 mg/dL (65-110); Magnesium 2.2 mg/dL (1.6-2.3); Potassium 3.9 mmol/L (3.4-5.0); Sodium 134 mmol/L (137-145)
[2022-05-28] MEDS: DOXYCYCLINE HYCLATE 100 MG TABLET PO ×2 (08:07→21:41)
[2022-05-28] MEDS: HYDROCORTISONE 10 MG TABLET PO ×2 (08:07→17:04)
[2022-05-28] MEDS: LOSARTAN POTASSIUM 50 MG TABLET PO (08:07)
[2022-05-28] MEDS: DOCUSATE SODIUM 100 MG CAPSULE PO ×2 (08:12→21:39)
[2022-05-28 08:13] LABS: Glucose Point of Care 69 mg/dl (65-105)
[2022-05-28 11:51] LABS: Glucose Point of Care 78 mg/dl (65-105)
--- NOTE | 2022-05-28 13:28 | PM.PNCARD ---
Progress Note: A&P Assessment and Plan (1) Bradycardia: Code(s): R00.1 - Bradycardia, unspecified Status: Acute Plan 67-year-old man with sinus bradycardia which is been improved following discontinuance of his beta-irene. If his telemetry remained stable we do not have any ear additional cardiac recommendations regarding this. Follow-up of his blood pressure etc. can be with his PCP as Dr. Allen mentioned in her note. Cardiology will sign off at this time Joni Barrera MD [facility] Subjective Date/time seen: Date of service: 05/28/22 13:28 Interval history: Follow-up visit in this 67-year-old gentleman with: Concerning bradycardia but with no history of syncopal event. Metoprolol has been stopped with improvement. Patient feeling relatively well this afternoon he was ambulating on the floor today with physical therapy. No cardiovascular complaints Exam Const: General: comfortable and no acute distress Other: Pleasant black male appears his stated age no distress at this time HENMT: Mouth: Yes moist mucous membranes Eyes: Sclera: sclerae normal Neck: Neck: supple Thyroid: thyroid normal Resp: Effort & Inspection: normal respiratory effort Auscultation: clear to auscultation bilaterally Cardio: Rate: regular rate Rhythm: regular rhythm Other: No obvious murmur or gallop. PMI not displaced GI: GI Palp: Yes Soft to palpation Auscultation: normal bowel sounds Neuro: Other: Alert and oriented x3, mentation somewhat slow Extrem: General: normal to inspection Other: No pitting edema at this time Objective Data Vital Signs Vital Signs: Vital Signs - 24 hr 05/27/22 16:00 05/27/22 16:00 05/27/22 20:00 Temperature 36.7 C Pulse Rate 62 59 L 58 L Respiratory Rate 16 Blood Pressure 114/66 Pulse Oximetry 99 Oxygen Delivery 05/27/22 22:43 05/28/22 00:00 05/28/22 05:52 Temperature 36.4 C 36.3 C L Pulse Rate 55 L 56 L 53 L Respiratory Rate 18 18 Blood Pressure 129/78 132/72 Pulse Oximetry 100 100 Oxygen Delivery 05/28/22 04:00 05/28/22 08:05 Temperature Pulse Rate 59 L Respiratory Rate Blood Pressure Pulse Oximetry Oxygen Delivery Room Air Intake/Output Intake/Output: Intake & Output 0805/26/22 05/27/22 05/28/22 23:59 23:59 23:59 23:59 Intake Total 4060 2820 2180 540 Output Total 8692 0559 5896 650 [facility] -15 770 -70 -110 Meds/Results Medications: Active Medications Generic Name Dose Route Start Last Admin Trade Name Freq PRN Reason Stop Dose Admin Acetaminophen 650 mg 05/22/22 10:58 Acetaminophen 325 Mg Tablet PO Q4H PRN Mild Pain (1-3) or Fever Calcium Carbonate 500 mg 05/23/22 17:00 05/28/22 08:07 Calcium/Vitamin D 500 Mg Tablet PO 500 mg BID HIMA Administration Dextrose 12.5 gm 05/22/22 18:37 05/22/22 21:29 Dextrose 50% 25 Gm/50 Ml Syringe IV PUSH 12.5 gm PRN PRN Administration Hypoglycemia Protocol Docusate Sodium 100 mg 05/27/22 21:00 05/28/22 08:12 Docusate Sodium 100 Mg Capsule PO 100 mg Q12HR HIMA Administration Doxycycline Hyclate 100 mg 05/24/22 21:00 05/28/22 08:07 Doxycycline Hyclate 100 Mg Tablet PO 100 mg Q12HR HIMA Administration Glucagon 1 mg 05/22/22 18:37 05/23/22 00:36 Glucagon For Inj 1 Mg Vial IM 1 mg PRN PRN Administration Hypoglycemia Protocol Glucose 15 gm 05/22/22 18:37 Glucose Oral Gel 15 Gm Of Glucse In 37.5 Gm Tube PO PRN PRN Hypoglycemia Protocol Hydrocortisone 10 mg 05/26/22 17:00 05/28/22 08:07 Hydrocortisone 10 Mg Tablet PO 10 mg BIDWM HIMA Administration Dextrose 1,000 mls @ 100 mls/hr 05/22/22 18:37 Dextrose 5% 1,000 Ml IVPB PRN PRN Hypoglycemia Protocol Ceftriaxone Sodium 2 gm/ 100 mls @ 200 mls/hr 05/24/22 15:00 05/27/22 16:04 Sodium Chloride IVPB 200 mls/hr Q24H HIMA Administration Levothyroxine Sodium 100 m
[2022-05-28 15:03] LABS: Glucose Point of Care 93 mg/dl (65-105)
[2022-05-28 20:54] LABS: Glucose Point of Care 82 mg/dl (65-105)
[2022-05-28] MEDS: TAMSULOSIN HCL 0.4 MG CAPSULE PO (21:41)
[2022-05-29] VITALS (9 sets, daily range): BP systolic 131–152; BP diastolic 78–85; PULSE 49–64; RESP 18–20; TEMP 36.4–37.4; O2SAT 99–100
[2022-05-29 00:11] LABS: Glucose Point of Care 103 mg/dl (65-105)
[2022-05-29 04:17] LABS: Glucose Point of Care 85 mg/dl (65-105)
[2022-05-29] MEDS: LEVOTHYROXINE SODIUM 100 MCG TABLET PO (06:02)
[2022-05-29 06:44] LABS: Hematocrit 32.4 % (42.0-52.0); Hemoglobin 10.3 g/dL (14.0-18.0); Mean Corpuscular HGB Conc 31.8 g/dl (32-36); Mean Corpuscular Hemoglobin 25.6 pg (26-34); Mean Corpuscular Volume 80.6 fl (80-100); Platelet Count Result 503 k/mm3 (150-375); Red Blood Count 4.02 M/mm3 (4.6-6.20); Red Cell Distribution Width 13.8 % (11.5-14.5); White Blood Count 10.1 K/mm3 (4.5-10.0)
[2022-05-29 07:24] LABS: Alanine Aminotransferase 25 U/L (6-50); Alkaline Phosphatase 92 U/L (38-126); Anion Gap 4 mmol/L (8-16); Aspartate Amino Transferase 41 U/L (17-59); Bilirubin,Total 0.4 mg/dL (0.2-1.3); Blood Urea Nitrogen 16 mg/dL (9-20); Calcium 8.6 mg/dL (8.4-10.2); Carbon Dioxide 31 mmol/L (22-30); Chloride 100 mmol/L (98-107); Estimated CRCL calculation 52 ml/min; Estimated Glomerular Filt Rate > 60; Glucose 83 mg/dL (65-110); Magnesium 2.2 mg/dL (1.6-2.3); Potassium 4.3 mmol/L (3.4-5.0); Sodium 135 mmol/L (137-145)
[2022-05-29 07:56] LABS: Glucose Point of Care 75 mg/dl (65-105)
[2022-05-29] MEDS: LOSARTAN POTASSIUM 50 MG TABLET PO (08:42)
[2022-05-29] MEDS: HYDROCORTISONE 10 MG TABLET PO ×2 (08:42→17:04)
[2022-05-29] MEDS: DOCUSATE SODIUM 100 MG CAPSULE PO ×2 (08:43→21:07)
[2022-05-29] MEDS: DOXYCYCLINE HYCLATE 100 MG TABLET PO ×2 (08:43→21:08)
--- NOTE | 2022-05-29 09:27 | PCNWS ---
Weekly nutritional screen. Patient is tolerating current regular diet with adequate intake at 75-100% most all meals. Ensure compact BID in place. Wt stable. No nutritional needs at this time.
[2022-05-29 12:22] LABS: Glucose Point of Care 60 mg/dl (65-105)
--- NOTE | 2022-05-29 13:56 | PM.DS ---
DS: Summary Hospital Course Hospital Course: Please monitor patient blood sugars as patient get hypoglycemic and has bradycardia. patient to follow up with his primary care provider as soon as possible. Time Spent with Patient Time attestation: Total time spent providing and/or coordinating discharge services: DS: Data Data Completed and Pending Labs on day of discharge: Labs from last 24 hours 05/29/22 05/29/22 05/29/22 11:55 07:32 06:07 WBC RBC Hgb Hct MCV MCH MCHC RDW Plt Count MPV Sodium 135 L Potassium 4.3 Chloride 100 Carbon Dioxide 31 H Anion Gap 4 L BUN 16 Creatinine 1.30 Estim Creat Clear Calc 52 Estimated GFR > 60 Glucose 83 POC Capillary Glucose 60 L 75 Calcium 8.6 Magnesium 2.2 Total Bilirubin 0.4 AST 41 ALT 25 Alkaline Phosphatase 92 Total Protein 7.0 Albumin 3.0 L 05/29/22 05/29/22 05/29/22 06:07 04:14 00:08 WBC 10.1 H RBC 4.02 L Hgb 10.3 L Hct 32.4 L MCV 80.6 MCH 25.6 L MCHC 31.8 L RDW 13.8 Plt Count 503 H MPV 9.0 Sodium Potassium Chloride Carbon Dioxide Anion Gap BUN Creatinine Estim Creat Clear Calc Estimated GFR Glucose POC Capillary Glucose 85 103 Calcium Magnesium Total Bilirubin AST ALT Alkaline Phosphatase Total Protein Albumin 05/28/22 05/28/22 20:44 15:01 WBC RBC Hgb Hct MCV MCH MCHC RDW Plt Count MPV Sodium Potassium Chloride Carbon Dioxide Anion Gap BUN Creatinine Estim Creat Clear Calc Estimated GFR Glucose POC Capillary Glucose 82 93 Calcium Magnesium Total Bilirubin AST ALT Alkaline Phosphatase Total Protein Albumin Discharge Plan Discharge Attending physician on discharge: Gina Jones Consulting providers: Nadia Allen Discharging Clinician: Gina Jones Patient Disposition: NH Snf/Asst Living Activity: as tolerated Diet: regular Discharge Instructions: Per Care Coordination, you will discharge home with [facility] for continued PT/OT. Please have [employer] fax discharge instructions to . Please monitor patient blood sugars as patient get hypoglycemic and has bradycardia. patient to follow up with his primary care provider as soon as possible. Patient Instructions: Antibiotic Form Follow-up/Referrals: PHYSICIAN NOT ON STAFF,NONSTAFF [Primary Care Provider] - Discharge Medications: New docusate sodium 100 mg Capsule 100 mg PO Q12HR Qty: 30 0RF levothyroxine [Synthroid] 100 mcg Tablet 100 mcg PO DAILY@0630 Qty: 30 0RF hydrocortisone 10 mg Tablet 10 mg PO BIDWM Qty: 60 0RF Continued losartan 50 mg Tablet 50 mg PO DAILY calcium carbonate-vitamin D3 [Oysco 500/D] 500 mg-5 mcg (200 unit) Tablet 1 tablet PO BID tamsulosin 0.4 mg capsule 0.4 mg PO HS Discontinued hydrocortisone 5 mg Tablet 5 - 10 mg PO BID Rx Instructions: 2 tablets am, 1 tab at noon metoprolol succinate 50 mg Tablet Extended Release 24 Hr 50 mg PO DAILY levothyroxine 75 mcg Tablet 75 mcg PO DAILY Date of admission: 05/22/22 10:58 Primary Care Provider: PHYSICIAN NOT ON STAFF,NONSTAFF Admitting Provider: Joni Avery Attending physician on admission: Joni Avery Condition: Stable
[2022-05-29 14:44] LABS: Glucose Point of Care 86 mg/dl (65-105)
[2022-05-29 15:20] LABS: EDCOVIDSCREEN Negative (Negative)
[2022-05-29 16:14] LABS: Glucose Point of Care 94 mg/dl (65-105)
--- NOTE | 2022-05-29 17:45 | PM.IMPN ---
Progress Note: A&P Assessment and Plan (1) Hypothyroidism: Code(s): E03.9 - Hypothyroidism, unspecified Status: Acute (2) Gout: Code(s): M10.9 - Gout, unspecified Status: Acute (3) Hypertension: Code(s): I10 - Essential (primary) hypertension Status: Acute (4) Pneumonia: Code(s): J18.9 - Pneumonia, unspecified organism Status: Acute (5) COVID: Code(s): U07.1 - COVID-19 Status: Acute (6) Weakness: Code(s): R53.1 - Weakness Status: Acute Additional Plan 05/23/2022 interval history: patient with dementia and recently was diagnosed with COVID 19 and hospitalized, presented with weakness and now has pneumonia treated with Cefepime and Vancomycin, will have PT.OT evaluate the patient and will repeat chest x-ray and monitor. 05/24/2022 interval history: patient with dementia and recently was diagnosed with COVID 19 and hospitalized, presented with weakness and now has pneumonia treated with Cefepime and Vancomycin, today discusss with ID pharmacy recommended to deescalate abx to ceftriaxone and doxycycline, patient continue to be on D10 IVF 125cc/hr, and eating full regular meals, and blood sugars remains close 100, most likely syncopal episodes and falling stemming from hypoglycemia, will do further evaluation for hypoglycemia, will continue to monitor, will have PT.OT evaluate the patient and will repeat chest x-ray and monitor, 05/25/2022 interval history: patient with dementia and recently was diagnosed with COVID 19 and hospitalized, presented with weakness and now has pneumonia treated with Cefepime and Vancomycin, on 05/24 discusssed with ID pharmacy recommended to deescalate abx to ceftriaxone and doxycycline, patient continue to be on D10 IVF 125cc/hr, and eating full regular meals, and blood sugars remains close 100, most likely syncopal episodes and falling stemming from hypoglycemia, today patient blood sugars trending up, will reduce D10 to 75cc/hr, patient TSH is low as well as T3, will start patient on levothyroxine 25mcg daily and monitor, and will continue to monitor, will have PT.OT evaluate the patient and will repeat chest x-ray and monitor. 05/26/2022 interval history: patient with dementia and recently was diagnosed with COVID 19 and hospitalized, presented with weakness and now has pneumonia was treated with Cefepime and Vancomycin, on 05/24 discussed with ID pharmacy recommended to deescalate abx to ceftriaxone and doxycycline, patient with hypoglycemia patient was on on D10 IVF 125cc/hr, and was eating full regular meals, and blood sugars remains close 100, most likely syncopal episodes and falling stemming from hypoglycemia, on 05/25 patient blood sugars were trending up, reduced D10 to 75cc/hr, patient is on Cortef possibly for hypotension and hypoglycemia, taking 10mg in am and 5mg at noon, will increase to 10mg BID, this will help with hypoglycemia and BP, patient TSH is low as well as T3, patient with hypothyroid taking levothyroxine 75mcg qd, will increase to 100mcg qd, and will continue to monitor, will have PT.OT evaluate the patient and will repeat chest x-ray and monitor. 05/27/2022 interval history: patient with dementia and recently was diagnosed with COVID 19 and hospitalized, presented with weakness and now has pneumonia was treated with Cefepime and Vancomycin, on 05/24 discussed with ID pharmacy recommended to deescalate abx to ceftriaxone and doxycycline, repeat CXR on 05/26 showed persistent PNA, however clinical symptoms are improving, patient with hypoglycemia patient was on on D10 IVF 125cc/hr, and was eating full regular meals, and blood sugars remains close 100, most likely syncopal episodes and falling stemming from hypoglycemia, on 05/25 patient blood sugars were trending up, reduced D10 to 75cc/hr, patient is on Cortef possibly for hypotension and hypoglycemia, taking 10mg in am and 5mg at noon, will increase to 10mg BID, this mercy
[2022-05-29] MEDS: TAMSULOSIN HCL 0.4 MG CAPSULE PO (21:08)
[2022-05-29 22:11] LABS: Glucose Point of Care 119 mg/dl (65-105)
[2022-05-30] VITALS: PULSE 59
[2022-05-30 00:42] LABS: Glucose Point of Care 93 mg/dl (65-105)
[2022-05-30 04:00] VITALS: PULSE 55
[2022-05-30 05:41] VITALS: BP 152/99; PULSE 88; RESP 17; TEMP 37.7; O2SAT 100
[2022-05-30 06:44] LABS: Glucose Point of Care 67 mg/dl (65-105)
[2022-05-30] MEDS: LEVOTHYROXINE SODIUM 100 MCG TABLET PO (06:54)
[2022-05-30 07:02] LABS: Hematocrit 32.5 % (42.0-52.0); Hemoglobin 10.3 g/dL (14.0-18.0); Mean Corpuscular HGB Conc 31.7 g/dl (32-36); Mean Corpuscular Hemoglobin 26.2 pg (26-34); Mean Corpuscular Volume 82.7 fl (80-100); Mean Platelet Volume 8.7 fl (7.4-10.4); Platelet Count Result 495 k/mm3 (150-375); Red Blood Count 3.93 M/mm3 (4.6-6.20); Red Cell Distribution Width 13.9 % (11.5-14.5); White Blood Count 11.8 K/mm3 (4.5-10.0)
[2022-05-30 07:08] LABS: Alanine Aminotransferase 24 U/L (6-50); Albumin Level 3.2 g/dL (3.5-5.1); Alkaline Phosphatase 92 U/L (38-126); Anion Gap 8 mmol/L (8-16); Aspartate Amino Transferase 40 U/L (17-59); Bilirubin,Total 0.4 mg/dL (0.2-1.3); Blood Urea Nitrogen 18 mg/dL (9-20); Calcium 8.6 mg/dL (8.4-10.2); Carbon Dioxide 28 mmol/L (22-30); Chloride 99 mmol/L (98-107); Estimated CRCL calculation 56 ml/min; Estimated Glomerular Filt Rate > 60; Glucose 81 mg/dL (65-110); Magnesium 2.2 mg/dL (1.6-2.3); Potassium 4.2 mmol/L (3.4-5.0); Sodium 135 mmol/L (137-145)
[2022-05-30 07:13] LABS: Glucose Point of Care 62 mg/dl (65-105)
[2022-05-30 08:00] VITALS: PULSE 61
[2022-05-30 08:31] LABS: Glucose Point of Care 78 mg/dl (65-105)
[2022-05-30] MEDS: HYDROCORTISONE 10 MG TABLET PO (09:14)
[2022-05-30] MEDS: DOXYCYCLINE HYCLATE 100 MG TABLET PO (09:14)
[2022-05-30] MEDS: DOCUSATE SODIUM 100 MG CAPSULE PO (09:14)
[2022-05-30] MEDS: LOSARTAN POTASSIUM 50 MG TABLET PO (09:14)
--- NOTE | 2022-05-30 09:41 | PM.DS ---
DS: Admitting Diagnosis Discharge Date 05/30/2022 Admitting Diagnosis weakness DS: Discharge Diagnosis Discharge Diagnosis (1) Hypothyroidism: Code(s): E03.9 - Hypothyroidism, unspecified Status: Acute (2) Gout: Code(s): M10.9 - Gout, unspecified Status: Acute (3) Hypertension: Code(s): I10 - Essential (primary) hypertension Status: Acute (4) Pneumonia: Code(s): J18.9 - Pneumonia, unspecified organism Status: Acute (5) COVID: Code(s): U07.1 - COVID-19 Status: Acute (6) Weakness: Code(s): R53.1 - Weakness Status: Acute DS: Summary Hospital Course Reason for hospitalization: Chief Complaint: Patient is a 67-year-old male with a history of hypertension, gout, hypothyroidism presenting to the emergency department for evaluation of weakness, intermittent dizziness and difficulty with ambulation.? Per EMS report, the patient reportedly tested positive for COVID on May 13.? Patient was initially evaluated at [facility] where he was admitted and then ultimately discharged home too quickly per family.? The patient has a family member who is a caregiver that checked on the patient today and found him to be weak and then called EMS.? This is why EMS was called and the patient was brought into the ER. At the time of arrival, patient is alert and oriented to person, place, time but does struggle with identifying the year.? He is reporting upper and lower back pain and generalized weakness.? He reports decreased appetite, productive cough and shortness of breath.? He denies any frontal chest pain.? Per EMS, he required significant assist with ascending staircase since his room is in the basement and is likely not safe at home due to significant amount of steps.? When I evaluated the patient he was doing a little bit better.? Feeling like his breathing was improved.? He did receive vanc and cefepime in the ER.? CT scan revealed pneumonia but no PE.? Denies any other chest pain complaints. Hospital Course: patient with dementia and recently was diagnosed with COVID 19 and hospitalized, presented with weakness and now has pneumonia was treated with Cefepime and Vancomycin, on 05/24? discussed? with ID pharmacy recommended to deescalate abx to ceftriaxone and doxycycline, repeat CXR on 05/26 showed persistent PNA, however clinical symptoms are improving, today again discusss with ID pharmacy patient has completed ceftriaxone 7 days course, will continue doxycycline for 2 more days to complete 7day course,? patient with hypoglycemia patient was on D10 IVF 125cc/hr, and was eating full regular meals, and blood sugars remains close 100, most likely syncopal episodes and falling stemming from hypoglycemia, on 05/25? patient blood sugars were? trending up, reduced D10 to 75cc/hr, patient is on Cortef possibly for hypotension and hypoglycemia, taking 10mg in am and 5mg at noon, increased to 10mg BID, this will help with hypoglycemia and BP, on 05/27 stopped D10 and patient blood sugars below 100, will monitor patient blood sugars, also patient HR is soledad, seen by potato pancake frier recommended to stop metoprolol, will monitor? patient TSH is low as well as T3, patient with hypothyroid taking levothyroxine 75mcg qd, will increase to 100mcg qd, and will continue to monitor, will have PT.OT evaluate the patient. Plan was discharge patient to SNF today however patient insurance would not apporve it, I spoke with patient's brother and he is try to find a caregive, who will stay with patient and help monitor patient blood sugars to prevent hypoglycemia, will monitor, patient remains clinically stable his brother and family will monitor patient blood sugar and heart rate will discharge the patient today. Time Spent with Patient Time attestation: Total time spent providing and/or coordinating discharge services: Exam Narrative: Patient is comfortable, NAD HEENT: eyes are clear and none icter
[2022-05-30 12:00] VITALS: PULSE 72
[2022-05-30 12:07] LABS: Glucose Point of Care 79 mg/dl (65-105)
--- NOTE | 2022-05-30 13:03 | PCNSR ---
On 05/30/22, the student, Teresa Moreno, provided care and completed [facility] documentation on this patient. I have reviewed the student's documentation and agree with the findings.
[2022-05-30 14:46] VITALS: BP 134/73; PULSE 71; RESP 16; TEMP 36.4; O2SAT 100
== END 2022-05-30 16:15 | disposition home health service (06) | DRG 195 ==
LOC: ANHED 08:48 → ANHIMU 11:27 → ANH3MEDSUR 05-27 18:29
PROVIDERS: Admitting Provider Chiropractor; Emergency Provider Emergency Medicine; Visit Provider Family Medicine
DX: J18.9 Pneumonia, unspecified organism (principal); U09.9 Post COVID-19 condition, unspecified; Z20.822 Contact with and (suspected) exposure to COVID-19; E16.2 Hypoglycemia, unspecified; R00.1 Bradycardia, unspecified; F03.90 Unspecified dementia, unspecified severity, without behavioral disturbance, psychotic disturbance, mood disturbance, and anxiety; E03.9 Hypothyroidism, unspecified; M10.9 Gout, unspecified; I10 Essential (primary) hypertension; I95.9 Hypotension, unspecified
CPT/HCPCS: 36415; 51701; 71045; 71046; 71275; 72128; 72131; 80048; 80053; 81001; 82565; 82948; 83605; 83735; 83880; 84439; 84443; 84480; 84484; 85025; 85027; 85380; 85610; 85730; 86140; 87040; 87077; 87086; 87088; 87186; 87426; 93005; 96361; 96365; 97110; 97116; 97161; 97165; 97530; 97535; 99285; A9270; C9803; J0692; J0696; J1610; J2405; J3370; J7030; J7040; Q9967

== ENCOUNTER 2024-01-17 19:07 | Emergency (ER) | payer MEDICARE, SELFPAY ==
[2024-01-17] VITALS (15 sets, daily range): BP systolic 135–161; BP diastolic 88–104; PULSE 67–76; RESP 16–28; TEMP 36.9; O2SAT 99–100
--- NOTE | ~2024-01-17 | XR_ITS ---
XR chest 1V portable DATE: 01/17/2024 19:40 INDICATION: Shortness of breath TECHNIQUE: Portable upright AP chest on January 17, 2024 at 1939 hours COMPARISON: None FINDINGS: Normal heart size. Mild aortic unfolding. No hilar or mediastinal enlargement. No pulmonary infiltrate or consolidation, pleural effusion or pulmonary vascular congestion or pneumo thorax is detected. Osteopenia. IMPRESSION: No active cardiopulmonary disease Reviewed, dictated and finalized at location A.
--- NOTE | 2024-01-17 19:30 | ECG_ITS ---
SEE SCANNED COPY FOR CONFIRMED REPORT MTDD
[2024-01-17 19:38] LABS: Basophils Percent Auto 0.7 % (0.2-1.2); Eosinophils Absolute Auto 0.3 K/mm3 (0-0.3); Eosinophils Percent Auto 5.5 % (0-4.4); Hematocrit 39.6 % (42.0-52.0); Immature Granulocyte Absolute 0.03 K/mm3 (0.00-0.031); Immature Granulocyte Percent A 0.5 % (0-0.5); Lymphocytes Absolute Auto 2.65 K/mm3 (0.9-3.2); Mean Corpuscular HGB Conc 32.8 g/dl (32-36); Mean Corpuscular Hemoglobin 27.4 pg (26-34); Mean Corpuscular Volume 83.5 fl (80-100); Mean Platelet Volume 9.5 fl (7.4-10.4); Monocytes Absolute Auto 0.5 K/mm3 (0.1-0.6); Monocytes Percent Auto 8.5 % (2.6-8.5); Neutrophils Absolute Auto 2.5 K/mm3 (1.3-6.7); Neutrophils Percent Auto 40.8 % (45.5-73.1); Platelet Count Result 209 k/mm3 (150-375); Red Blood Count 4.74 M/mm3 (4.6-6.20); Red Cell Distribution Width 14.1 % (11.5-14.5)
[2024-01-17 19:47] LABS: Alanine Aminotransferase 26 U/L (6-50); Albumin Level 4.2 g/dL (3.5-5.1); Alkaline Phosphatase 75 U/L (38-126); Anion Gap 7 mmol/L (4-12); Aspartate Amino Transferase 47 U/L (17-59); Bilirubin,Total 0.5 mg/dL (0.2-1.3); Blood Urea Nitrogen 15 mg/dL (9-20); Calcium 9.5 mg/dL (8.4-10.2); Carbon Dioxide 24 mmol/L (22-30); Chloride 102 mmol/L (98-107); Estimated CRCL calculation 41 ml/min; Estimated Glomerular Filt Rate 52; Glucose 86 mg/dL (65-110); Lipase 102 U/L (23-300); Potassium 3.7 mmol/L (3.4-5.0); Sodium 133 mmol/L (137-145)
[2024-01-17 19:48] LABS: Prothrombin Time 13.7 Seconds (11.1-14.7)
[2024-01-17 19:49] LABS: Partial Thromboplastin Time 39.4 Seconds (22.3-36.8)
[2024-01-17 19:59] LABS: Troponin I < 0.012 ng/mL (0.000-0.034)
[2024-01-17 20:40] LABS: NT Pro B Type Natriuretic Pept 118 pg/mL (19.9-100)
--- NOTE | 2024-01-17 20:46 | ED.GENADULT ---
HPI - General Adult General Chief complaint: Chest Pain Stated complaint: cp Time Seen by Provider: 01/17/24 19:48 History of Present Illness HPI narrative: This is a 68-year-old male presenting with 1 week of dyspnea. Patient says that he is having trouble sleeping at night. He is frequently waking up gasping for air. He does not have any dyspnea during the day. He has no history of COPD or CHF. No lower extremity edema. No fevers chills productive cough chest pain or abdominal fullness. Patient has never had a sleep study performed. Related Data Home Medications Medication Instructions Recorded Confirmed calcium carbonate 500 mg-vitamin 1 tablet PO BID 05/22/22 05/22/22 D3 5 mcg (200 unit) tablet (Oysco 500/D) losartan 50 mg tablet 50 mg PO DAILY 05/22/22 05/22/22 tamsulosin 0.4 mg capsule 0.4 mg PO HS 05/22/22 05/22/22 Allergies Allergy/AdvReac Type Severity Reaction Status Date / Time No Known Allergies Allergy Verified 05/22/22 08: [facility] Past Medical History Medical History (Updated 01/17/24 @ 20:52 by Ronald Mak MD) History of stroke Memory loss Surgical History Surgical History No history of previous surgery Family History Family History Father Old age of old age, no history of heart disease Mother Old age of old age, no history of heart disease Social History Social History Social History: Patient states he worked a [employer]. He states that he is single, lives alone, and has no children. Used to drink heavily but quit. Brother and sister are closest relatives and live in [place]. Smoking status: Never smoker Alcohol intake: never Substance use: never Substance use type: does not use Living arrangements: alone Gender identity (if verbalized by the patient): Male Spiritual care concerns: No Exam Narrative: APPEARANCE: No apparent distress. Head: atraumatic. EYES: EOMI, NOSE: Atraumatic NECK: Trachea midline RESPIRATORY: No increased rate of breathing, Clear to auscultation CARDIOVASCULAR: RRR, no peripheral edema ABDOMINAL: Non-distended, soft nontender no guarding,rebound MUSCULOSKELETAl: No obvious deformities NEURO: Alert. Moving 4/4 extremities SKIN:: Warm, dry. Normal color PSYCHIATRIC: Normal affect Course Vital Signs Vital signs: Vital Signs Temperature 98.5 F 01/17/24 19:09 Pulse Rate 73 01/17/24 19:09 Respiratory Rate 19 01/17/24 19:09 Blood Pressure 147/104 H 01/17/24 19:09 Pulse Oximetry 100 01/17/24 19:09 Oxygen Delivery Room Air 01/17/24 19:09 Temperature 98.5 F 01/17/24 19:09 Pulse Rate 68 01/17/24 21:34 Respiratory Rate 22 H 01/17/24 21:34 Blood Pressure 146/94 H 01/17/24 21:34 Pulse Oximetry 99 01/17/24 21:34 Oxygen Delivery Room Air 01/17/24 19:20 Medical Decision Making MDM Narrative Medical decision making narrative: -Course: 68-year-old male presenting with trouble breathing at night. At this time he is asymptomatic And has been asymptomatic throughout his stay. Workup was negative. History physical most consistent obstructive sleep apnea. Patient will be discharged follow-up with primary care physician for outpatient. -DDX includes but is not limited to: Obstructive sleep apnea, pneumonia, heart failure, COPD, ACS -Co-morbidities complicating care: hypertension -Social determinants of health: retired steel, lives alone -Independent interpretation of studies: labs reviewed within normal limits including troponin negative x2. chest x-ray unremarkable. Viral swabs negative Independent EKG interpretation: Rhythm [sinus], Rate [70], [place] -[normal], [place] -[normal], QRS [narrow], QTC [normal], T waves -[negative for concerning inversions], ST Segments - [Negative
[2024-01-17 21:06] LABS: Influenza A QL RT-PCR Negative (Negative); Influenza B QL RT-PCR Negative (Negative); SARS-CoV-2 RNA PCR Negative (Negative)
[2024-01-17 22:54] LABS: Troponin I < 0.012 ng/mL (0.000-0.034)
[2024-01-18] VITALS: BP 153/97; PULSE 88; RESP 15; O2SAT 99
== END 2024-01-18 00:02 | disposition home or self-care (01) ==
PROVIDERS: Emergency Provider Emergency Medicine
DX: R06.00 Dyspnea, unspecified (principal); Z20.822 Contact with and (suspected) exposure to COVID-19
CPT/HCPCS: 36415; 71045; 80053; 83690; 83880; 84484; 85025; 85610; 85730; 87636; 93005; 99284